=== PATIENT | male | born 1960 | race Caucasian/White ===

== ENCOUNTER 2020-06-15 20:37 | Observation (INO) | payer BC, OTHER ==
[~2020-06-15] VITALS: Ht 182.9 cm; Wt 122.0 kg
[2020-06-15] MEDS ORDERED: SODIUM CHLORIDE FLUSH 10ML SYR IVF ONE (21:00)
[2020-06-15 21:14] LABS: MEAN CORPUSCULAR HEMOGLOBIN 41.5 pg (27.5-34.5); MEAN PLATELET VOLUME 6.5 fL (7.4-10.4); PLATELET COUNT 302 x10^3/uL (130-400); RED BLOOD COUNT 3.36 x10^6/uL (4.38-5.82); RED CELL DISTRIBUTION WIDTH 17.7 % (9.4-14.8)
[2020-06-15 21:23] LABS: ALBUMIN 3.6 g/dL (3.4-5.0); ANION GAP 7 mmol/L (5-15); CALCIUM 8.1 mg/dL (8.5-10.1); CHLORIDE 103 mmol/L (98-107); CREATININE 1.31 mg/dL (0.7-1.3)
[2020-06-15 21:31] LABS: TROPONIN I < 0.015 ng/mL (0.000-0.045)
[2020-06-15 21:38] LABS: MD YES
[2020-06-15 21:47] LABS: BAND#(MANUAL) 0.09 x10^3/uL; BANDS%(MANUAL) 1 % (0-7); EOS#(MANUAL) 0.09 x10^3/uL (0.0-0.4); EOS% (MANUAL) 1 % (1-7); LYMPH#(MANUAL) 0.47 x10^3/uL (1-3.4); LYMPHS% (MANUAL) 5 % (22-44); MONOS#(MANUAL) 0.28 x10^3/uL (0.3-2.7); MONOS% (MANUAL) 3 % (2-9); SEG#(MANUAL) 8.37 x10^3/uL (1.8-6.8); SEGS% (MANUAL) 90 % (42-75)
[2020-06-15] MEDS ORDERED: OMNIPAQUE 350 MG/ML, 75ML BOTTLE ONE (21:49)
[2020-06-15 21:51] LABS: POLYCHROMASIA 1+
[2020-06-15 21:53] LABS: <PLATELET ESTIMATE> ADEQUATE; <PLT MORPHOLOGY> NORMAL PLT MORPH
[2020-06-15] MEDS ORDERED: OXYcodone/APAP 5/325MG TABLET ONE (22:25)
[2020-06-15] MEDS ORDERED: OXYcodone/APAP 5/325MG TABLET PO ONE (22:30)
--- NOTE | 2020-06-15 22:39 | NUR ---
REPORT GIVEN TO ANTONINA TIERNEY.
--- NOTE | 2020-06-15 23:32 | NUR ---
Pt A&O x 4 . Pt on 2L NC with stable VS. Report called to Alyse SARKAR. Pt ready for transport,
[2020-06-16] MEDS ORDERED: morphine SULFATE 10 MG/ML, 1ML IVPush PRN
[2020-06-16] MEDS ORDERED: NITROGLYCERIN 0.4 MG BOTTLE (25 TABS) SL PRN
[2020-06-16] MEDS ORDERED: hydrALAzine 20 MG/ML, 1ML IVPush PRN
[2020-06-16] MEDS ORDERED: DOCUSATE 100 MG CAPSULE PO PRN
[2020-06-16] MEDS ORDERED: MELATONIN 5 MG TABLET PO PRN
[2020-06-16] MEDS ORDERED: ACETAMINOPHEN 325 MG TABLET PO PRN
[2020-06-16] MEDS: HEPARIN 5,000 UNITS/ML, 1ML SQ SCH ×3 (00:17→16:11)
[2020-06-16 00:43] VITALS: BP 120/80
[2020-06-16 00:45] VITALS: BP 120/80
[2020-06-16] MEDS: OXYcodone/APAP 5/325MG TABLET PO PRN ×5 (03:12→16:32)
[2020-06-16 03:21] LABS: CHOLESTEROL, TOTAL 214 mg/dL (140-239); TRIGLYCERIDES 73 mg/dL (50-200); VLDL CHOLESTEROL 15 mg/dL (0-25)
[2020-06-16 03:25] LABS: CHOL/HDL RATIO 3.6; HDL CHOL % 28 % (26-37); HDL CHOLESTEROL (DIRECT) 59 mg/dL (40-60); LDL CHOLESTEROL,CALCULATED 140 mg/dL (54-169); LDL/HDL RATIO 2.4 (0.5-3.0); TROPONIN I < 0.015 ng/mL (0.000-0.045)
[2020-06-16] MEDS: INSULIN LISPRO 100 UNITS/ML, PEN SQ-INSULIN SCH ×3 (07:00→11:00)
[2020-06-16 07:01] VITALS: BP 114/69
[2020-06-16] MEDS ORDERED: CYANOCOBALAMIN 1,000 MCG/ML, 1ML IM SCH (09:00)
[2020-06-16 09:50] LABS: MEAN CORPUSCULAR HEMOGLOBIN 40.4 pg (27.5-34.5); MEAN CORPUSCULAR HGB CONC 34.3 g/dL (33.2-36.2); MEAN PLATELET VOLUME 6.5 fL (7.4-10.4); PLATELET COUNT 295 x10^3/uL (130-400); RED BLOOD COUNT 3.12 x10^6/uL (4.38-5.82); RED CELL DISTRIBUTION WIDTH 17.2 % (9.4-14.8)
[2020-06-16 10:04] LABS: ANION GAP 6 mmol/L (5-15); CALCIUM 7.8 mg/dL (8.5-10.1); CHLORIDE 105 mmol/L (98-107)
[2020-06-16 10:08] LABS: TROPONIN I < 0.015 ng/mL (0.000-0.045)
[2020-06-16 10:15] LABS: MD YES
[2020-06-16 10:16] LABS: ANISOCYTOSIS 2+; BAND#(MANUAL) 0.66 x10^3/uL; BANDS%(MANUAL) 5 % (0-7); LYMPH#(MANUAL) 0.13 x10^3/uL (1-3.4); LYMPHS% (MANUAL) 1 % (22-44); MONOS#(MANUAL) 0.53 x10^3/uL (0.3-2.7); MONOS% (MANUAL) 4 % (2-9); SEG#(MANUAL) 11.88 x10^3/uL (1.8-6.8); SEGS% (MANUAL) 90 % (42-75)
[2020-06-16 10:17] LABS: <PLATELET ESTIMATE> ADEQUATE; <PLT MORPHOLOGY> NORMAL PLT MORPH
[2020-06-16 10:18] LABS: TOXIC GRAN 1+
[2020-06-16] MEDS ORDERED: REGADENOSON 0.4 MG/5 ML SYRINGE ONE (10:53)
[2020-06-16 13:45] VITALS: BP 112/69
== END 2020-06-16 18:13 | disposition home or self-care (01) ==
LOC: ED 20:58 → EDIP 22:53 → INTOOBSV 22:53 → 5SO 23:43
PROVIDERS: ADMIT Internal Medicine; ATTEND Hospitalist
DX: J95.821 Acute postprocedural respiratory failure (principal); R07.89 Other chest pain; G47.33 Obstructive sleep apnea (adult) (pediatric); D75.89 Other specified diseases of blood and blood-forming organs; N17.0 Acute kidney failure with tubular necrosis; K76.0 Fatty (change of) liver, not elsewhere classified; E78.5 Hyperlipidemia, unspecified; R73.9 Hyperglycemia, unspecified; K21.9 Gastro-esophageal reflux disease without esophagitis; I11.0 Hypertensive heart disease with heart failure; I50.30 Unspecified diastolic (congestive) heart failure; D35.01 Benign neoplasm of right adrenal gland; E53.8 Deficiency of other specified B group vitamins; F17.203 Nicotine dependence unspecified, with withdrawal; Z96.651 Presence of right artificial knee joint; Z79.899 Other long term (current) drug therapy
CPT/HCPCS: 36415; 71045; 71275; 78452; 80048; 80061; 82040; 82607; 82962; 83036; 83880; 84443; 84484; 85025; 93005; 93017; 96372; 99285; A9502; C8929; G0378; J1644; J2785; J3420; Q9957; Q9967